=== PATIENT | male | born 1990 | race Caucasian/White ===

== ENCOUNTER 2022-05-29 23:23 | Emergency (ER) | payer OTHER ==
[2022-05-29] MEDS ORDERED: Sodium Chloride 0.9% 1,000 ML IV ONE (23:36)
[2022-05-29] MEDS ORDERED: Ondansetron 4 MG/2 ML SDV IVPUSH PRN (23:38)
[2022-05-29] MEDS ORDERED: GI Cocktail Oral Solution 30 ML PO ONE (23:39)
[2022-05-30 00:02] LABS: ANION GAP 8.8 meq/L (7-15); CHLORIDE,CL 100 mmol/L (98-107); SODIUM,NA 136 mmol/L (136-145)
[2022-05-30 00:03] LABS: ESTIMATED GFR 90 mL/min (>=60)
[2022-05-30] MEDS ORDERED: Sodium Chloride 0.9% 10 ML Syringe FLUSH PRN (00:17)
[2022-05-30] MEDS ORDERED: Sodium Chloride 0.9% 1,000 ML IV ONE (00:40)
[2022-05-30] MEDS ORDERED: fentaNYL 50 MCG/ML SDV IVPUSH PRN (00:41)
[2022-05-30] MEDS ORDERED: Iopamidol 612 MG/ML 100 ML Bottle IVPUSH ONE (01:03)
[2022-05-30] MEDS ORDERED: Pantoprazole 40 MG Vial IVPUSH ONE (01:42)
[2022-05-30] MEDS ORDERED: Ketorolac 30 MG/ML SDV IVPUSH ONE (01:42)
[2022-05-30] MEDS ORDERED: Ketorolac 30 MG/ML SDV ONE (01:44)
[2022-05-30] MEDS ORDERED: Pantoprazole 40 MG Vial ONE (01:44)
[2022-05-30] MEDS ORDERED: Dicyclomine 20 MG Tab PO ONE (01:57)
== END 2022-05-30 02:30 | disposition home or self-care (01) ==
LOC: LL.ED 23:23
DX: R10.13 Epigastric pain (principal); R10.31 Right lower quadrant pain; R10.32 Left lower quadrant pain; Z88.8 Allergy status to other drugs, medicaments and biological substances
CPT/HCPCS: 36415; 74177; 80053; 82150; 83690; 85025; 86140; 96361; 96374; 96375; 99284; 99284-25; A9270-GY; C9113; J1885; J3490; J7030; Q9967

== ENCOUNTER 2022-05-30 04:12 | Emergency (ER) | payer OTHER ==
[2022-05-30] MEDS ORDERED: methylPREDNISolone Sodium Succinate 125 MG/2 ML SDV IM ONE (05:03)
[2022-05-30] MEDS ORDERED: diphenhydrAMINE 50 MG/ML SDV IM ONE (05:03)
[2022-05-30 05:18] LABS: ANION GAP 15.2 meq/L (7-15); CHLORIDE,CL 103 mmol/L (98-107); ESTIMATED GFR 86 mL/min (>=60); SODIUM,NA 135 mmol/L (136-145)
[2022-05-30] MEDS ORDERED: EPINEPHrine 1 MG/ML SDV SUBCUT ONE (05:59)
[2022-05-30] MEDS ORDERED: Sodium Chloride 0.9% 1,000 ML IV SCH (06:00)
== END 2022-05-30 09:00 | disposition home or self-care (01) ==
LOC: LL.ED 04:12
DX: T78.1XXA Other adverse food reactions, not elsewhere classified, initial encounter (principal); Z88.8 Allergy status to other drugs, medicaments and biological substances; Z72.0 Tobacco use
CPT/HCPCS: 36415; 70450; 80053; 82550; 84484; 85025; 86140; 93005; 93010; 96360; 96361; 96372; 99284; 99285-25; J1200; J2930; J7030

== ENCOUNTER 2022-05-31 23:55 | Observation (INO) | payer OTHER ==
[2022-06-01] MEDS ORDERED: Sodium Chloride 0.9% 1,000 ML IV ONE (00:11)
[2022-06-01 00:47] LABS: ANION GAP 8.6 meq/L (7-15); CHLORIDE,CL 105 mmol/L (98-107); SODIUM,NA 142 mmol/L (136-145)
[2022-06-01 00:49] LABS: ESTIMATED GFR 100 mL/min (>=60)
[2022-06-01] MEDS ORDERED: Acetaminophen 325 MG Tab PO PRN (01:36)
[2022-06-01] MEDS ORDERED: Ondansetron 4 MG/2 ML SDV IVPUSH ONE (01:39)
[2022-06-01] MEDS ORDERED: Ondansetron 4 MG/2 ML SDV IVPUSH PRN (01:44)
[2022-06-01] MEDS ORDERED: Morphine 2 MG/ML SYRINGE IVPUSH PRN (01:45)
[2022-06-01] MEDS ORDERED: Sodium Chloride 0.9% 1,000 ML IV SCH (01:45)
[2022-06-01] MEDS ORDERED: Non-Formulary Medication 1 Each (Epinephrine [Epipen] 0.3 MG/0.3 ML Pen) IM PRN (01:45)
[2022-06-01] MEDS ORDERED: Magnesium Sulfate/Water 2 GM in Premix Bag 1 BAG IV ONE (01:48)
[2022-06-01] MEDS: Hyoscyamine 0.125 MG Tab.SL SL SCH ×2 (02:18→08:05)
[2022-06-01] MEDS ORDERED: diphenhydrAMINE 50 MG/ML SDV IM ONE (06:07)
[2022-06-01] MEDS ORDERED: methylPREDNISolone Sodium Succinate 125 MG/2 ML SDV IM ONE (06:08)
[2022-06-01] MEDS ORDERED: EPINEPHrine 1 MG/ML SDV IM ONE (06:37)
[2022-06-01] MEDS ORDERED: Famotidine 20 MG/2 ML SDV IVPUSH ONE (07:02)
[2022-06-01] MEDS ORDERED: Famotidine 20 MG/2 ML SDV ONE (07:02)
[2022-06-01] MEDS: Sodium Chloride 0.9% 10 ML Syringe FLUSH PRN ×2 (07:04→07:19)
== END 2022-06-01 08:07 ==
LOC: LL.ED 23:55 → LL.MS 06-01 01:15
PROVIDERS: ADMIT Emergency Medicine; ATTEND Emergency Medicine
DX: A08.4 Viral intestinal infection, unspecified (principal); U07.1 COVID-19; E83.42 Hypomagnesemia; R11.0 Nausea; Z88.8 Allergy status to other drugs, medicaments and biological substances; F17.210 Nicotine dependence, cigarettes, uncomplicated; Z79.899 Other long term (current) drug therapy
CPT/HCPCS: 36415; 74019; 80053; 82150; 83605; 83690; 83735; 85025; 87045; 87046; 96361; 96365; 96366; 96372; 96375; 99285-25; A9270-GY; J0171; J1200; J2270; J2930; J3475; J3490; J7030

== ENCOUNTER 2024-01-26 10:07 | Observation (INO) | payer OTHER ==
[2024-01-26] MEDS: Ondansetron 4 MG/2 ML SDV IVPUSH ONE (10:40)
[2024-01-26] MEDS ORDERED: Sodium Chloride 0.9% 10 ML Syringe FLUSH PRN (10:43)
[2024-01-26 10:53] LABS: BASOPHILS ABSOLUTE AUTO 0.02 K/uL (0.00-0.20); BASOPHILS PERCENT AUTO 0.1 % (0.0-2.0); EOSINOPHILS ABSOLUTE AUTO 0.18 K/uL (0.00-0.50); EOSINOPHILS PERCENT AUTO 1.1 % (0.0-5.0); HEMATOCRIT 54.5 % (39.0-49.0); IMMATURE GRAN ABSOLUTE AUTO 0.06 10^3/uL (0.00-0.50); IMMATURE GRAN PERCENT AUTO 0.4 % (0.0-5.0); LYMPHOCYTES ABSOLUTE AUTO 1.51 K/uL (0.50-3.50); LYMPHOCYTES PERCENT AUTO 9.4 % (10.0-50.0); MEAN CORPUSCULAR HEMOGLOBIN 32.3 pg (28.2-33.3); MEAN CORPUSCULAR HGB CONC 34.9 g/dL (31.7-36.0); MEAN CORPUSCULAR VOLUME 92.7 fL (84.0-98.0); MONOCYTES ABSOLUTE AUTO 0.84 K/uL (0.00-1.00); MONOCYTES PERCENT AUTO 5.2 % (2.0-14.0); NEUTROPHILS ABSOLUTE AUTO 13.48 K/uL (1.40-7.00); NEUTROPHILS PERCENT AUTO 83.8 % (45.0-80.0); PLATELET COUNT,PLT 343 K/uL (150-350); RED BLOOD CELL COUNT 5.88 M/uL (4.33-5.41); RED CELL DISTRIBUTION WIDTH 11.1 % (11.2-14.1); WHITE BLOOD CELL COUNT,WBC 16.1 K/uL (4.0-10.2)
[2024-01-26] MEDS: Sodium Chloride 0.9% 1,000 ML IV ONE ×2 (10:53→12:00)
[2024-01-26] MEDS: Ondansetron 4 MG/2 ML SDV ONE (10:54)
[2024-01-26 11:00] LABS: ALANINE AMINOTRANSFERASE,ALT 55 U/L (12-78); ALBUMIN 4.4 g/dL (3.4-5.0); ALKALINE PHOSPHATASE 84 IU/L (46-116); ASPARTATE AMNIOTRANSFERASE,AST 25 U/L (15-37); BILIRUBIN TOTAL 0.7 mg/dL (0.2-1.0); BLOOD UREA NITROGEN,BUN 18 mg/dL (7-18); CALCIUM 9.5 mg/dL (8.5-10.1); CARBON DIOXIDE,CO2 18.3 mmol/L (21.0-32.0); CHLORIDE,CL 102 mmol/L (98-107); GLUCOSE RANDOM 121 mg/dL (70-99); POTASSIUM,K 4.7 mmol/L (3.5-5.1); PROTEIN TOTAL,TP 8.8 g/dL (6.4-8.2); SODIUM,NA 135 mmol/L (136-145)
[2024-01-26 11:01] LABS: ANION GAP 19.4 meq/L (7-15); ESTIMATED GFR 101 mL/min (>=60)
[2024-01-26] MEDS: Ketorolac 15 MG/ML SDV IVPUSH ONE (11:04)
[2024-01-26 11:05] LABS: LACTIC ACID 2.6 mmol/L (0.4-2.0)
[2024-01-26] MEDS: Morphine 2 MG/ML SYRINGE IVPUSH ONE (11:14)
[2024-01-26] MEDS: Famotidine 20 MG/2 ML SDV IVPUSH ONE (11:21)
[2024-01-26] MEDS: Promethazine 25 MG/ML SDV IM ONE (12:32)
[2024-01-26] MEDS: Loperamide 2 MG Tab PO ONE (12:50)
[2024-01-26] MEDS ORDERED: Naloxone 0.4 MG/ML SDV IVPUSH PRN (13:15)
[2024-01-26] MEDS ORDERED: Morphine 2 MG/ML SYRINGE IVPUSH PRN (13:15)
[2024-01-26] MEDS ORDERED: Acetaminophen 325 MG Tab PO PRN (13:15)
[2024-01-26] MEDS ORDERED: Ondansetron 4 MG/2 ML SDV IVPUSH PRN (13:15)
[2024-01-26] MEDS ORDERED: Promethazine 25 MG/ML SDV IM PRN (13:18)
[2024-01-26] MEDS: Sodium Chloride 0.9% 1,000 ML IV SCH (14:08)
[2024-01-26] MEDS: Nicotine 21 MG/24 Hr Patch TRDERM SCH (17:13)
[2024-01-26] MEDS ORDERED: Take Home: Ondansetron 4 MG Tab.DIS, 5 Tab Pack PO ONE (17:14)
== END 2024-01-26 17:55 | disposition home or self-care (01) ==
LOC: LL.ED 10:07 → UNDOADMOB 12:55 → LL.MS 12:55 → UNDODISOB 17:55
PROVIDERS: ADMIT Emergency Medicine; ATTEND Emergency Medicine
DX: K52.9 Noninfective gastroenteritis and colitis, unspecified (principal); I10 Essential (primary) hypertension; F17.200 Nicotine dependence, unspecified, uncomplicated; Z88.8 Allergy status to other drugs, medicaments and biological substances; Z79.82 Long term (current) use of aspirin; Z79.899 Other long term (current) drug therapy
CPT/HCPCS: 36415; 74022; 80053; 82150; 83605; 83735; 85025; 87428-QW; 87651-QW; 96361; 96374; 96375; 99236; 99285-25; A9270-GY; G0378; J2270; J2405; J3490; J7030; Q0162; U0002